=== PATIENT | male | born 1960 | race African-American/Black ===

== ENCOUNTER 2020-02-26 18:08 | Emergency (ER) | payer SELFPAY ==
[2020-02-26 19:09] LABS: #Basophils 0.1 thou/uL (0.0-0.2); #Eosinphils 0.1 thou/uL (0.0-0.7); #Lymphocytes 2.1 thou/uL (1.20-3.40); #Monocytes 0.5 thou/uL (0.11-0.59); #Neutrophils 5.7 thou/uL (1.40-6.50); %Basophils 0.7 % (0.0-1.0); %Eosinophils 0.7 % (0.0-10.0); %Lymphocytes 24.7 % (21.0-51.0); %Monocytes 6.1 % (0.0-10.0); %Neutrophils 67.8 % (42.0-75.0); Mean Corpuscular HGB CONC 34.4 g/dL (32.0-36.0); Mean Corpuscular Hemoglobin 34.4 pg (27.0-31.0); Mean Platelet Volume 6.2 fL (7.4-10.4); Platelet Count 310 thou/uL (130-400); RBC Distribution Width 10.7 % (11.5-14.5); Red Blood Cell (RBC) Count 4.36 mill/uL (4.70-6.10); White Blood Cell (WBC) Count 8.5 thou/uL (4.8-10.8)
[2020-02-26 19:30] LABS: ALT (SGPT) 24 U/L (8-55); AST (SGOT) 34 U/L (5-34); Albumin 4.2 g/dL (3.5-5.0); Alkaline Phosphatase 98 U/L (40-110); Anion Gap 10 mmol/L (10-20); BUN (Urea Nitrogen) 13 mg/dL (8.4-25.7); Calc. Creatinine Clearance 0 mL/min (70-130); Calcium 9.4 mg/dL (7.8-10.44); Carbon Dioxide 23 mmol/L (22-29); Chloride 108 mmol/L (98-107); Estimated GFR-MDRD Greater than 90; Globulin 3.7 g/dL (2.4-3.5); Glucose 101 mg/dL (70-105); Potassium 3.4 mmol/L (3.5-5.1); Protein, Total 7.9 g/dL (6.0-8.3); Sodium 138 mmol/L (136-145)
--- NOTE | 2020-02-26 20:07 | RAD ---
PORTABLE CHEST: 02/26/20 HISTORY: Syncope, chest pain. Heart size is within normal limits for portable technique. Mediastinal structures appear unremarkable . Lungs are clear of infiltrates. IMPRESSION: No active intrathoracic disease. POS: PHILIP
--- NOTE | 2020-02-29 17:05 | EKG ---
Test Reason : Blood Pressure : / mmHG Vent. Rate : 083 BPM Atrial Rate : 083 BPM P-R Int : 196 ms QRS Dur : 086 ms QT Int : 386 ms P-R-T Axes : 022 010 024 degrees QTc Int : 453 ms Sinus rhythm with frequent Premature ventricular complexes Otherwise normal ECG Confirmed by ABIDA JOHNSON ([id number]), film or videotape editor CHELLY KHAN ([id number]) on 02/29/2020 5:05:48 PM Referred By: Confirmed By:ABIDA Schulz
== END 2020-02-26 20:38 | disposition home or self-care (01) ==
LOC: ERS 18:08
DX: R19.7 Diarrhea, unspecified (principal); R20.2 Paresthesia of skin; I10 Essential (primary) hypertension; B20 Human immunodeficiency virus [HIV] disease; Z79.899 Other long term (current) drug therapy
CPT/HCPCS: 36415; 71045; 80053; 84484; 85025; 93005